=== PATIENT | female | born 1935 | race Caucasian/White ===

== ENCOUNTER 2023-07-28 10:15 | Outpatient (REF) | payer MEDICARE, SELFPAY | END 2023-07-28 10:16 | disposition home or self-care (01) | LOC: HO.NEURO 10:15 | PROVIDERS: Visit Provider Orthopaedic Surgery Orthopaedic Trauma | DX: G54.0 Brachial plexus disorders (principal) | CPT/HCPCS: 95886; 95910 ==

== ENCOUNTER → 2023-07-28 10:22 | Outpatient (BNV) | payer MEDICARE, SELFPAY | PROVIDERS: Visit Provider Physical Medicine & Rehabilitation | DX: G54.4 Lumbosacral root disorders, not elsewhere classified (principal) | CPT/HCPCS: 95886; 95910 ==